=== PATIENT | female | born 1940 | race Caucasian/White ===

== ENCOUNTER 2017-12-22 12:47 | Observation (INO) ==
--- NOTE | 2017-12-21 21:46 | MH ---
cc: Mike Taylor MD DATE OF ADMISSION: 12/22/2017 ADMITTING DIAGNOSES: Postmenopausal bleeding, degenerated uterine fibroid. HISTORY OF PRESENT ILLNESS: The patient is a 77-year-old, single white female, para 3-0-0-3, who was referred by her family doctor, Dr. Porter, in September 2017 with a 6-month history of painless vaginal bleeding. She was seen by me on 10/12/2017. Her Pap smear was normal. A vaginal ultrasound on 10/14/2017 showed a uterus with a large complex solid and cystic mass measuring 10.3 cm in the midline position of the uterine body. The right and left ovaries could not be seen. MRI was obtained on 10/26/2017 which again showed the uterus enlarged with a heterogeneous mass measuring 8 x 9 cm that appeared to be centered in the myometrium with a mass effect on the endometrial canal. There were cystic and solid components and some pressure on the bladder and bowel loops. The mass was well circumscribed and no evidence for invasion of other tissues. She underwent an outpatient hysteroscopy and D and C at [facility] on 11/04/2017 which revealed a benign endocervix and benign endometrium. She is now admitted for a hysterectomy. PAST SURGICAL HISTORY: None except for HPI. MEDICATIONS: None. ALLERGIES: NONE. TRANSFUSIONS: None. MEDICAL ILLNESSES: None. OBSTETRIC HISTORY: Three vaginal deliveries. SOCIAL HISTORY: She is retired, . Alcohol, tobacco and drugs are none. FAMILY HISTORY: Noncontributory. REVIEW OF SYSTEMS: Negative. PHYSICAL EXAMINATION: GENERAL: This is a well-nourished, well-developed white female. VITAL SIGNS: Stable. HEENT: Normal. CHEST: Clear. HEART: Regular rate. BREASTS: Symmetrical. ABDOMEN: Benign. PELVIC: Normal external genitalia and BUS. Vagina is normal. Cervix normal. Uterus is enlarged at about 14 weeks' size. Adnexa nonpalpable. ASSESSMENT: As above. PLAN: She is now admitted for laparoscopy, possible LASH/BSO, possible TRISTON/BSO. While in the office, the risks, benefits and complications including infection, injury and bleeding were explained and accepted and the possible need for additional surgery pending final pathology. She is aware this could be an unusual malignancy and could require additional surgery. MD Luz Harper , 09:10 PM , 09:18 PM
[2017-12-22] MEDS ORDERED: Metoprolol Tartrate 25 MG Tablet PO ONE (13:58)
[2017-12-22] MEDS ORDERED: Chlorhexidine Gluconate 2% 1 Pack (2 Cloths) TOPICAL ONE (13:58)
[2017-12-22] MEDS ORDERED: Sodium Chlor 0.9% Inj 500 ML IV.SIG SCH (14:00)
[2017-12-22] MEDS ORDERED: ceFAZolin 1 GM Premix Inj 1 GM/50 ML FROZ.PIGGY IV.SIG SCH (14:00)
[2017-12-22] MEDS ORDERED: Glycopyrrolate Inj 1 MG/5 ML Syringe IV.PUSH ONE (15:30)
[2017-12-22] MEDS ORDERED: Neostigmine Inj 5 MG/5 ML Syringe IV.PUSH ONE (15:30)
[2017-12-22] MEDS ORDERED: Lidocaine PF 1% Inj 5 ML Syringe OTHER ONE (15:30)
[2017-12-22] MEDS ORDERED: Ketorolac Inj 30 MG/ML (IVP) Vial IV.PUSH ONE (15:30)
[2017-12-22] MEDS ORDERED: Bupivacaine Liposomal PF 1.3% Inj 20 ML Vial ONE ×2 (16:16→17:09)
[2017-12-22] MEDS: Ketorolac Inj 30 MG/ML (IVP) Vial IV.PUSH SCH (16:45)
[2017-12-22] MEDS ORDERED: Naloxone Inj 0.4 MG/ML Vial IV.PUSH PRN (17:14)
[2017-12-22] MEDS ORDERED: Morphine Inj 30 MG/30 ML PCA.VIAL PCA PRN (17:14)
[2017-12-22] MEDS ORDERED: Morphine Sulfate Inj 2 MG/ML Vial IV.SIG ONE (17:14)
[2017-12-22] MEDS ORDERED: KCL 20 mEq/D5W/NaCl 0.45% Inj 1,000 ML ONE (17:24)
[2017-12-22] MEDS ORDERED: Morphine Inj 30 MG/30 ML PCA.VIAL PCA ONE (17:24)
[2017-12-22] MEDS ORDERED: fentaNYL Citrate Inj 100 MCG/2 ML Ampul ONE ×2 (17:39→17:40)
[2017-12-22] MEDS: KCL 20 mEq/D5W/NaCl 0.45% Inj 1,000 ML IV.CONT SCH (18:00)
[2017-12-22] MEDS ORDERED: *morphine SULFATE 10 MG/ML PERIprocedure ONLY ONE (18:11)
[2017-12-22 18:22] LABS: Hematocrit 47.3 % (35.0-46.0); Hemoglobin 15.2 gm/dL (11.6-15.3); Mean Corpuscular HGB Conc 32.1 % (32.0-36.0); Mean Corpuscular Hemoglobin 29.3 pg (27.0-34.0); Mean Corpuscular Volume 91.4 fL (80.0-100.0); Mean Platelet Volume 9.5 fL (7.0-11.0); Platelet Count 132 th/mm3 (150-450); Red Blood Count 5.18 mil/mm3 (4.00-5.30); Red Cell Distribution Width 12.9 % (11.6-17.2); White Blood Count 10.3 th/mm3 (4.0-11.0)
--- NOTE | 2017-12-22 19:17 | MP ---
cc: Mike Taylor MD DATE OF OPERATION: 12/22/2017 PREOPERATIVE DIAGNOSIS: Postmenopausal bleeding, large degenerating fibroid. POSTOPERATIVE DIAGNOSIS: Postmenopausal bleeding, large degenerating fibroid. Pathology pending. PROCEDURE PERFORMED: Laparoscopy followed by laparotomy, TRISTON/BSO. ANESTHESIA: General, ET. SURGEON: Mike Taylor MD STE[employer] GENERATING [employer]OWER[employer]ANT MECHANIC: Kriss Rosado MD ESTIMATED BLOOD LOSS: About 100 mL. FLUIDS: 1.8 liters crystalloid. OBJECTIVE FINDINGS: Following induction of adequate general endotracheal anesthesia, examination revealed a 14-week size, mobile symmetrically enlarged uterus. The patient was then prepped and draped supine on the operating table in dorsal lithotomy position in sterile fashion, with the bladder being drained by Mccullough catheterization. The abdomen was opened through a 0.5 cm infraumbilical incision, a 5-port laparoscope was inserted, a second 5 in the left lower quadrant. Uterus was symmetrically enlarged about 14-week size with a large fundal fibroid. Cul-de-sacs were clear. Liver edge was normal. Ovaries and tubes were normal. There was no obvious disease outside the fibroid. Due to the large size and the suspicious nature of the large fibroid in a person her age, decision was made to proceed with laparotomy and so the scope was withdrawn, gas was allowed to escape. The ports were removed and the lower abdomen opened through a Pfannenstiel incision using a knife to cut down through the skin to the fascia. The fascia opened transversely, stripped from the muscles, rectus muscle split in the midline and the peritoneum opened sharply. Peritoneal washings were collected. The elastic retractor was placed. The bowel was packed off the field with moistened laps. Large Sierra clamps were placed on each uterine cornua for traction. The right round ligament was suture ligated with 0 Vicryl and cut. The right ovarian vessels were isolated free of the ureter, triply clamped with Heaneys, cut, ligated x 2 with free ties of 0 Vicryl, also on the left. Bladder flap was taken down sharply. Uterine vessels skeletonized bilaterally. The uterine vessels on the right were triply clamped with Heaneys, cut, ligated x 2 with 0 Vicryl and then the left. Straight Rena clamp was used to take the cardinal and uterosacral in succession, clamping, cutting, and ligating with 0 Vicryl in Lamin fashion. When the level was exposed to the cervix, the anterior vaginal wall was pierced with a knife and the cervix excised to the vaginal cuff. Cervix, uterus, tubes, and ovaries were passed off in one portion for permanent study. Each corner of the vaginal cuff was now closed and suspended to the respective uterosacral ligament, with a modified Valentine stitch of 0 Vicryl. The remainder of the cuff was closed with a running locking stitch of 0 Vicryl, each corner reinforced with 0 Vicryl interrupted. Irrigation performed. No bleeding was evident. Ureters inspected for good peristalsis. A wet lap was placed in the pelvis for 5 minutes and then rechecked;, there was no bleeding. The operative site was coated with Ely. All the retractors were removed. Counts were correct, and the anterior peritoneum closed with a running stitch of 2-0 Vicryl, the fascia with a running locking stitch of 0 Vicryl corner to midline and tied, after dusting the muscles with Arixtra. Subcutaneous was closed with running 3-0 Vicryl, the skin with a running subcuticular 3-0 Monocryl. The umbilical wound closed with 3-0 Monocryl. Dermabond applied. All counts were correct and the patient was awakened and taken to the recovery room in good condition. MD CECILY Harper/gil , 05:21 PM , 05:30 PM AL
[2017-12-22] MEDS ORDERED: Zolpidem Tartrate 5 MG Tablet PO PRN (21:00)
[2017-12-23] MEDS: Docusate Sodium 100 MG Capsule PO SCH ×3 (00:28→20:40)
[2017-12-23] MEDS: Ketorolac Inj 30 MG/ML (IVP) Vial IV.PUSH SCH ×4 (00:45→20:40)
[2017-12-23] MEDS: KCL 20 mEq/D5W/NaCl 0.45% Inj 1,000 ML IV.CONT SCH ×3 (02:15→19:33)
[2017-12-23 05:49] LABS: Baso % (Auto) 0.1 % (0.0-2.0); Hematocrit 36.4 % (35.0-46.0); Hemoglobin 11.7 gm/dL (11.6-15.3); Lymph % (Auto) 7.7 % (9.0-44.0); Mean Corpuscular HGB Conc 32.2 % (32.0-36.0); Mean Corpuscular Volume 89.9 fL (80.0-100.0); Mean Platelet Volume 9.6 fL (7.0-11.0); Mono % (Auto) 8.2 % (0.0-8.0); Neut # (Auto) 10.6 th/mm3 (1.8-7.7); Platelet Count 317 th/mm3 (150-450); Red Blood Count 4.05 mil/mm3 (4.00-5.30); Red Cell Distribution Width 12.6 % (11.6-17.2); White Blood Count 12.6 th/mm3 (4.0-11.0)
[2017-12-23 06:18] LABS: Calcium 7.7 mg/dL (8.5-10.1); Carbon Dioxide 25.7 meq/L (21.0-32.0); Potassium 5.3 meq/L (3.5-5.1)
[2017-12-24] MEDS: Ketorolac Inj 30 MG/ML (IVP) Vial IV.PUSH SCH ×2 (03:53→08:17)
[2017-12-24] MEDS: KCL 20 mEq/D5W/NaCl 0.45% Inj 1,000 ML IV.CONT SCH (04:44)
[2017-12-24] MEDS: Docusate Sodium 100 MG Capsule PO SCH (08:17)
[2017-12-24] MEDS ORDERED: Bisacodyl 10 MG Supp RECTAL ONE (09:00)
--- NOTE | 2017-12-24 11:14 | MD ---
cc: Mike Taylor MD DATE OF DISCHARGE: 12/24/2017 ADMITTING DIAGNOSIS: Postmenopausal bleeding with a large degenerating fibroid. HISTORY OF PRESENT ILLNESS: The patient is a 77-year-old single white female with about an 8-month history of vaginal bleeding. She was referred to me in September. She underwent outpatient hysteroscopy and D and C in October, which returned benign. Ultrasound and MRI that showed a 10 cm central uterine mass, well delineated, with solid and cystic components. Due to the suspicious nature of the mass, surgery was recommended. HOSPITAL COURSE: She was admitted on 12/22/2017. Laparoscopy confirmed a large fundal enlargement with normal appearing tubes and ovaries. Due to the size of the mass and the small potential for sarcoma, it was felt best to remove intact. She underwent a TRISTON/BSO. Postop did well with advancement of diet and activity. Discharged home in excellent condition on 12/24/2017. DISCHARGE INSTRUCTIONS: She was advised NPV, light activity, no driving. Return to see me in 2 weeks. She was given a prescription for Percocet 5 one p.o. q.4 hours p.r.n. pain, #30. She will use OTC Motrin and Aleve as needed. She will call me if any abnormal symptoms. MD CECILY Harper/rs , 08:26 AM , 08:36 AM
== END 2017-12-24 11:29 | disposition home or self-care (01) ==
LOC: HSDC 12:47 → HSDI 12:47 → H1EA 20:04
PROVIDERS: ADMIT Obstetrics & Gynecology; ATTEND Obstetrics & Gynecology
PROC: LAPLASH (ICD-10-PCS; 2017-12-22 15:30)